=== PATIENT | female | born 1940 | race Caucasian/White ===

== ENCOUNTER 2022-12-10 06:51 | Day surgery (SDC) | payer MEDICARE ==
--- NOTE | 2022-12-08 14:49 | P.HPOR ---
History of Present Illness H&P Date: 12/08/22 Subjective: This is a 82 year old female that presents today for initial evaluation regarding a several year history of progressively worsening right hand numbness and tingling involving the thumb, index, middle and ring finger. She states her symptoms first started around the time of Covid, but never sought any treatment. She has been wearing wrist braces at nighttime with no relief. She states she had a left carpal tunnel release done by Dr. Armstrong approximately 10 years ago and responded very well to surgery. Physical Examination: RUE: AIN/PIN/Radial/Ulnar/Median motor intact. Radial/Ulnar/Median SILT. 2+/4 Radial/Ulnar pulses palpated. 5/5 APB, 5/5 FDI. Negative Finkelsteins, negative CMC grind, positive Durkan's compression. Imaging: X-Rays of the right hand 3 view taken in the office today demonstrate severe stage III SLAC wrist arthritis. Severe thumb CMC arthritis. Impression: 1.) Right carpal tunnel syndrome 2.) Right SLAC wrist arthritis Plan: Diagnosis and treatment options were discussed with the patient. She has failed conservative treatment for her right carpal tunnel syndrome. We discussed steroid injection versus carpal tunnel release. She wishes to pursue a right endoscopic first open carpal tunnel release. We discussed that since her symptoms are constant she may not get complete relief and the goal of the surgery would be to prevent any future progression of her symptoms and any improvement will be considered a success. PCP clearance is requested. The patient was agreeable with this plan. CC: Larry Patel M.D. -Richard Cruz DO Orthopedic Hand/Upper Extremity Surgeon Past Medical History Past Medical History: Atrial Flutter, Diabetes Mellitus, GERD/Reflux, Hyperlipidemia, Hypertension, Osteoarthritis (OA), Skin Disorder Additional Past Medical History / Comment(s): spinal stenosis, psoriasis, rosacea, lower leg edema zak. left leg, flat footed, & left foot pain History of Any Multi-Drug Resistant Organisms: None Reported Past Surgical History: Hysterectomy, Joint Replacement, Orthopedic Surgery, Tonsillectomy Additional Past Surgical History / Comment(s): left knee replacement, left foot heel spur, cataracts removed, right shoulder replaced Past Anesthesia/Blood Transfusion Reactions: Motion Sickness Smoking Status: Never smoker - Past Family History Mother Family Medical History: Cancer Medications and Allergies Home Medications Medication Instructions Recorded Confirmed Type Metoprolol Succinate (ER) [Toprol 50 mg PO DAILY 08/09/14 12/08/22 History Xl] Simvastatin [Zocor] 20 mg PO HS 08/09/14 12/08/22 History Cholecalciferol [Vitamin D3 (25 25 mcg PO DAILY 12/08/22 12/08/22 History Mcg = 1000 Iu)] Furosemide [Lasix] 40 mg PO DAILY 12/08/22 12/08/22 History Potassium Chloride [K-Tab ER] 10 meq PO DAILY 12/08/22 12/08/22 History Valsartan/Hydrochlorothiazide 1 each PO DAILY 12/08/22 12/08/22 History [Valsartan-Hctz 320-12.5 mg Tab] Warfarin [Coumadin] 5 mg PO HS 12/08/22 12/08/22 History metFORMIN HCL [Glucophage] 1,000 mg PO BID 12/08/22 12/08/22 History Allergies Allergy/AdvReac Type Severity Reaction Status Date / Time No Known Allergies Allergy Verified 12/08/22 10:24 Physical Examination Osteopathic Statement: *. No significant issues noted on an osteopathic structural exam other than those noted in the History and Physical/Consult.
[~2022-12-10 06:51] MED LIST: HYDROmorphone 0.5 MG/0.5 ML SYRINGE IVP PRN; LACTATED RINGERS 1,000 ML IV SCH; LIDOCAINE 1% (10MG/ML) FOR IV START INTRADERMA PRN; ONDANSETRON 4 MG/2 ML VIAL IVP ONE; Pre Op ABX Message 1 EACH MISC MISCELLANE ONE
[2022-12-10 07:55] VITALS: TEMP 97.5
[2022-12-10 08:14] LABS: Glucose,Whole Blood 158 mg/dL (70-110)
[2022-12-10 08:21] LABS: INR 4.4 (<1.2); Prothrombin Time 42.8 sec (9.0-12.0)
[2022-12-10] MEDS ORDERED: PROPOFOL 10 MG/ML 20 ML VIAL IV ONE (08:21)
[2022-12-10] MEDS ORDERED: fentaNYL (PF) 50 MCG/ML 2 ML AMP ONE (08:21)
[2022-12-10] MEDS ORDERED: MIDAZOLAM 2 MG/2 ML VIAL ONE (08:21)
[2022-12-10] MEDS ORDERED: LIDOCAINE 2% INJ 20 MG/ML SQ ONE (08:28)
[2022-12-10] MEDS ORDERED: BUPIVACAINE (PF) 0.5% 30 ML VIAL SQ ONE (08:28)
--- NOTE | 2022-12-10 08:41 | P.OP ---
Date of Procedure: 12/10/22 Preoperative Diagnosis: Right carpal tunnel syndrome Postoperative Diagnosis: Right carpal tunnel syndrome Procedure(s) Performed: Right endoscopic carpal tunnel release Anesthesia: MAC Surgeon: Richard Cruz Finished Yarn Examiner #1: Mike Sun Estimated Blood Loss (ml): 0 Pathology: none sent Condition: stable Disposition: PACU Description of Procedure: This is a 82 year old female who presents today for a right endoscopic carpal tunnel release after having failed conservative treatment in the past. Risks and benefits of surgery were discussed with the patient including bleeding, damage to surrounding tissue, infection, need to convert to open procedure, need for further surgery as well as risks of anesthesia including pulmonary embolism and even and the patient wished to proceed with surgical intervention. The patients was seen in the pre-operative area by myself. Consent and H&P were completed and updated. The correct extremity was marked in the pre-operative area by myself and all other questions were answered. Operative Narrative: The patient was brought to the operating room by the department of anesthesia. They remained on the portable stretcher and a rolling hand table was brought to the side of the operative extremity. Pre-operative time out was performed indicating the correct patient, procedure and laterality. All in the room agreed. The patient was then drifted off to sleep by the department of an esthesia. MAC anesthesia was utilized and a 50:50 mixture of 1% Lidocaine and 0.5% bupivacaine was injected into the subcutaneous tissues of the palmar skin, 8ccs total. A nonsterile tourniquet was then applied to the operative extremity and the right upper extremity was then prepped and draped in normal sterile fashion. The operative extremity was the exsanguinated with an esmarch bandage and the tourniquet was inflated to 250mmHg. 15 blade scalpel was utilized to make a transverse incision on the palmar skin just ulnar to the palmaris longus tendon at the level of the distal wrist creas e. Ragnell retractor was then placed radially and blunt dissection was performed to reveal the distal forearm fascia. This was lifted with fine Marin pick ups and Littler tenotomy scissors were then used to open the forearm fascia transversely and a double skin hook was then placed. Hamate finder was placed into the carpal tunnel and then sequential sized dilators were inserted followed by the synovial elevator to separate the flexor tenosynovium from the undersurface of the transverse carpal ligament and a washboard texture was felt. The MicroAire endoscopic carpal tunnel release system gun was the then inserted into the carpal tunnel hugging the deep portion of the transverse carpal ligament in line with the base of the ring finger. Transverse fibers of the ligament were directly visualized. Pressure was applied on the palm to reveal the distal extent of the transverse carpal ligament. The blade was then deployed and the distal half of the transverse carpal ligament was released. The scope was then brought distal again and remaining transverse fibers were incised with the blade. The proximal half of the transverse carpal ligament was then divided and again the scope was advanced distal and remaining transverse fibers were incised with the blade. The radial and ulnar leaflets were directly visualized and mobile consistent with complete release. Tenotomy scissors were then ut ilized to release the remaining distal forearm fascia under direct visualization taking care to preserve the palmar cutaneous branch of the median nerve. Skin closure was performed with interrupted 4-0 Monocryl suture followed by Mastisol and steri strips. Sterile dressing was applied consisting of adaptic, 4x4s, Webril, and an guera bandage. Tourniquet was let down and the hand immediately was well perfused. The patient was then woken by the department of anesthesia and transferred to PACU in stable condition. Mike ESCALANTE was present for the case in its entirety and assisted in major portions of the case and protection of vital neurovascular structures. Richard Cruz D.O. Orthopedic Hand/Upper Extremity Surgeon
[2022-12-10] MEDS ORDERED: LACTATED RINGERS 1,000 ML IV ONE (08:43)
[2022-12-10 08:46] LABS: Glucose,Whole Blood 145 mg/dL (70-110)
[2022-12-10 09:04] VITALS: BP 126/75; PULSE 64; RESP 17
== END 2022-12-10 09:13 | disposition home or self-care (01) ==
LOC: OR 06:51
PROVIDERS: ATTEND Orthopaedic Surgery Hand Surgery
DX: G56.01 Carpal tunnel syndrome, right upper limb (principal); I10 Essential (primary) hypertension; E78.5 Hyperlipidemia, unspecified; K21.9 Gastro-esophageal reflux disease without esophagitis; E11.9 Type 2 diabetes mellitus without complications; I48.92 Unspecified atrial flutter; Z90.710 Acquired absence of both cervix and uterus; Z90.89 Acquired absence of other organs; Z98.890 Other specified postprocedural states; Z79.84 Long term (current) use of oral hypoglycemic drugs; Z79.899 Other long term (current) drug therapy
CPT/HCPCS: 85610; 29848; J2001; J2250; J3010; J2704; J0665

== ENCOUNTER 2024-09-26 12:17 | Emergency (ER) | payer MEDICARE ==
[2024-09-26 12:47] LABS: Basophils # (A) 0.05 10*3/uL (0.00-0.10); Basophils % (A) 0.5 %; Eosinophils # (A) 0.16 10*3/uL (0.04-0.35); Eosinophils % (A) 1.5 %; HCT 40.7 % (37.2-46.3); HGB 13.1 g/dL (12.0-15.0); Lymphocytes # (A) 1.93 10*3/uL (0.90-5.00); Lymphocytes % (A) 18.3 %; MCH 27.4 pg (27.0-32.0); MCHC 32.2 g/dL (32.0-37.0); MCV 85.1 fL (80.0-97.0); Monocytes # (A) 0.95 10*3/uL (0.20-1.00); Monocytes % (A) 9.0 %; Neutrophils # (A) 7.19 10*3/uL (1.80-7.70); Neutrophils % (A) 68.1 %; Platelet Count 230 10*3/uL (140-440); RBC 4.78 10*6/uL (4.10-5.20); RDW 15.7 % (11.5-14.5); WBC 10.55 10*3/uL (4.50-10.00)
[2024-09-26 13:04] LABS: ALT 17 U/L (4-34); AST 27 U/L (14-36); African American GFR (CKD) >90 (>60 ml/min/1.73 sqM); Albumin 4.4 g/dL (3.5-5.0); Alkaline Phosphatase 49 U/L (38-126); Anion Gap 12 mmol/L; Blood Urea Nitrogen 19 mg/dL (7-17); Calcium 10.7 mg/dL (8.4-10.2); Carbon Dioxide 27 mmol/L (22-30); Chloride 95 mmol/L (98-107); Glucose 142 mg/dL (74-99); Magnesium 1.7 mg/dL (1.6-2.3); Non-African American GFR(CKD) >90 (>60 ml/min/1.73 sqM); Potassium 4.2 mmol/L (3.5-5.1); Sodium 134 mmol/L (137-145); Total Protein 6.6 g/dL (6.3-8.2)
--- NOTE | 2024-09-26 13:08 | XR ---
EXAMINATION TYPE: XR chest 2V DATE OF EXAM: 09/26/2024 1:03 PM COMPARISON: None. CLINICAL INDICATION: Female, 84 years old with history of Pain, TECHNIQUE: XR chest 2V view(s) obtained. FINDINGS: The heart size is normal. The pulmonary vasculature is normal. The lungs are clear. IMPRESSION: 1. No acute pulmonary process. [facility], , 09/26/2024 1:06 PM
[2024-09-26 13:14] LABS: INR 4.5 (<1.2); Partial Thromboplastin Time 31.0 sec (22.0-30.0); Prothrombin Time 44.5 sec (10.0-12.5)
--- NOTE | 2024-09-26 14:32 | ED ---
General Adult HPI - General Source: patient, RN notes reviewed Mode of arrival: ambulatory Limitations: no limitations <Citlali Quiñones - Last Filed: 09/26/24 14:31> <Billie Bruce - Last Filed: 09/30/24 16:11> - General Chief complaint: Dizziness Stated complaint: Dizziness,SOB Time Seen by Provider: 09/26/24 12:30 - History of Present Illness Initial comments: Quick [id number] female presenting to the emergency department for complaints of of dizziness with activity and difficulty in breathing on exertion over the past few days. Patient denies dyspnea at rest or dizziness at rest. She states the dizziness feels like she is falling. Denies chest pain. (Citlali Quiñones) 84-year-old female presents to the emergency department for evaluation of shortness of breath and lightheadedness. Patient notes that this is worse with exertion. She states that this has been going on for the past 3 to 4 days. She notes that at rest she does not have symptoms or they are very minimal. She denies any recent fever, chills. Denies any chest pain. She does report that she has been dealing with recurrent urinary tract infections. She does note that she is having urinary symptoms. (Billie Bruce) - Related Data Home Medications Medication Instructions Recorded Confirmed Metoprolol Succinate (ER) [Toprol 50 mg PO DIRECTED 08/09/14 09/26/24 Xl] Cholecalciferol [Vitamin D3 (25 25 mcg PO DAILY 12/08/22 09/26/24 Mcg = 1000 Iu)] Furosemide [Lasix] 40 mg PO DIRECTED 12/08/22 09/26/24 Potassium Chloride [K-Tab ER] 10 meq PO DIRECTED 12/08/22 09/26/24 Valsartan/Hydrochlorothiazide 1 tab PO DIRECTED 12/08/22 09/26/24 [Valsartan-Hctz 320-12.5 mg Tab] metFORMIN HCL [Glucophage] 1,000 mg PO DIRECTED 12/08/22 09/26/24 Jardiance (Unknown Dose) 1 tab PO DIRECTED 09/26/24 09/26/24 Simvastatin [Zocor] 20 mg PO DIRECTED 09/26/24 09/26/24 Warfarin Sodium 4 mg PO DIRECTED 09/26/24 09/26/24 Warfarin Sodium 6 mg PO DIRECTED 09/26/24 09/26/24 Previous Rx's Medication Instructions Recorded cefuroxime axetiL [Ceftin] 500 mg PO BID #14 tab 09/26/24 Allergies Allergy/AdvReac Type Severity Reaction Status Date / Time No Known Allergies Allergy Verified 09/26/24 17:57 Review of Systems ROS Other: All systems not noted in ROS Statement are negative. <Citlali Quiñones - Last Filed: 09/26/24 14:31> ROS Other: All systems not noted in ROS Statement are negative. <Billie Bruce - Last Filed: 09/30/24 16:11> ROS Statement: Those systems with pertinent positive or pertinent negative responses have been documented in the HPI. Past Medical History Past Medical History: Atrial Flutter, Diabetes Mellitus, GERD/Reflux, Hyperlipidemia, Hypertension, Osteoarthritis (OA), Skin Disorder Additional Past Medical History / Comment(s): spinal stenosis, psoriasis, rosacea, lower leg edema zak. left leg, flat footed, & left foot pain History of Any Multi-Drug Resistant Organisms: None Reported Past Surgical History: Hysterectomy, Joint Replacement, Orthopedic Surgery, Tonsillectomy Additional Past Surgical History / Comment(s): left knee replacement, left foot heel spur, cataracts removed, right shoulder replaced Past Anesthesia/Blood Transfusion Reactions: Motion Sickness Past Psychological History: No Psychological Hx Reported Smoking Status: Never smoker Past Alcohol Use History: None Reported Past Drug Use History: None Reported - Past Family History Mother Family Medical History: Cancer <Citlali Quiñones - Last Filed: 09/26/24 14:31> General Exam Limitations: no limitations <Citlali Quiñones - Last Filed: 09/26/24 14:31> Limitations: no limitations General appearance: alert, in no apparent distress Head exam: Present: atraumatic, normocephalic, normal inspection Eye exam: Present: normal appearance, PERRL, EOMI. Absent: scleral icterus, conjunctival injection, periorbital swelling ENT exam: Present: normal exam, mucous membranes moist Neck exam: Present: normal inspection. Absent: tenderness, meningismus, lymphadenopathy Respiratory exam: Present: normal lung sounds bilaterally. Absent: respiratory distress, wheezes, rales, rhonchi, stridor Cardiovascular Exam: Present: regular rate, normal rhythm, normal heart sounds. Absent: systolic murmur, diastolic murmur, rubs, gallop, clicks Extremities exam: Present: full ROM, normal capillary refill, pedal edema (Trace bilateral pedal edema). Absent: tenderness, joint swelling, calf tenderness Neurological exam: Present: alert, oriented X3 Psychiatric exam: Present: normal affect, normal mood Skin exam: Present: warm, dry, intact, normal color. Absent: rash <Billie Bruce - Last Filed: 09/30/24 16:11> - General Exam Comments Initial Comments: Visual Physical Exam Vital signs reviewed General: Well-appearing, nontoxic, no acute distress. Head: Normocephalic, atraumatic Eyes: PERRLA, EOMI ENT: Airway patent Chest: Nonlabored breathing Skin: No visual rash, normal skin tone Neuro: Alert and oriented 3 Musculoskeletal: No gross abnormalities (Citlali Quiñones) Course Vital Signs 09/26/24 09/26/24 09/26/24 12:19 15:19 18:16 Temperature 97.5 F L 97.9 F Pulse Rate 68 61 66 Respiratory 20 20 18 Rate Blood Pressure 128/76 120/76 108/74 O2 Sat by Pulse 98 97 98 Oximetry Medical Decision Making - Lab Data Result diagrams: 09/26/24 12:36 09/26/24 12:36 <Citalli Quiñones - Last Filed: 09/26/24 14:31> - Lab Data Result diagrams: 09/26/24 12:36 09/26/24 12:36 <Billie Bruce - Last Filed: 09/30/24 16:11> - Medical Decision Making I completed the quick note portion of this chart signed Citlali Quiñones PA-C (Citlali Quiñones) Was pt. sent in by a medical professional or institution ([facility], VIOLENT CRIMES DETECTIVE, urgent care, hospital, or penitentiary...) When possible be specific @ -No Did you speak to anyone other than the patient for history (EMS, parent, family, police, friend...)? What history was obtained from this source @ -No Did you review nursing and triage notes (agree or disagree)? Why? @ -I reviewed and agree with nursing and triage notes Were old charts reviewed (outside hosp., previous admission, EMS record, old EKG, old radiological studies, urgent care reports/EKG's, penitentiary records)? Report findings @ -No old charts were reviewed Differential Diagnosis (chest pain, altered mental status, abdominal pain women, abdominal pain men, vaginal bleeding, weakness, fever, dyspnea, syncope, headache, dizziness, GI bleed, back pain, seizure, CVA, palpatations, mental health, musculoskeletal)? @ -Differential Dyspnea: Coronary syndrome, arrhythmia, tamponade, asthma, COPD, pulmonary embolism, pneumonia, pneumothorax, pulmonary effusion, anaphylaxis, diabetic ketoacidosis, flailed chest, pulmonary contusion, diaphragmatic rupture, anemia, neuromuscular, this is not meant to be an all-inclusive list. EKG interpreted by me (3pts min.). @ -EKGEKG at 1227 reveals a flutter with a rate of 65 QRS 123, QT/QTc 382/394 X-rays interpreted by me (1pt min.). @ -Chest x-ray reveals no acute process CT interpreted by me (1pt min.). @ -None done U/S interpreted by me (1pt. min.). @ -None done What testing was considered but not performed or refused? (CT, X-rays, U/S, labs)? Why? @ -None What meds were considered but not given or refused? Why? @ -None Did you discuss the management of the patient with other professionals (professionals i.e. , PA, VIOLENT CRIMES DETECTIVE, lab, RT, psych nurse, social media senior associate, glass cut off tender, teacher, boating safety officer, case therapist)? Give summary @ -I discussed the case with Dr. Zendejas, the patient's manager labor relations who recommends antibiotic treatment for urinary tract infection and follow-up in office within the next 2 to 3 days Was smoking cessation discussed for >3mins.? @ -No Was critical care preformed (if so, how long)? @ -No Were there social determinants of health that impacted care today? How? (Homelessness, low income, unemployed, alcoholism, drug addiction, transportation, low edu. Level, literacy, decrease access to med. care, intermediate, rehab)? @ -No Was there de-escalation of care discussed even if they declined (Discuss DNR or withdrawal of care, Hospice)? DNR status @ -No What co-morbidities impacted this encounter? (DM, HTN, Smoking, COPD, CAD, Cancer, CVA, ARF, Chemo, Hep., AIDS, mental health diagnosis, sleep apnea, morbid obesity)? @ -None Was patient admitted / discharged? Hospital course, mention meds given and route, prescriptions, significant lab abnormalities, going to OR and other pertinent info. @ -Discharge. Patient presented emergency department for shortness of breath and lightheadedness. Patient has minimal symptoms at rest. Laboratory studies were obtained WBC of 10.5, hemoglobin 13.1; patient does have elevated INR at 4.5. I discussed this with Dr. Zendejas who recommended holding her nighttime dose of Eliquis today. CMP shows sodium 134 potassium 4.2, BUN 19, creatinine 0.43 negative troponin. UA shows 4+ glucose, 2+ ketones, large blood, large leukocyte esterase. I did discuss the case with the patient's primary care provider Dr. Zendejas who recommends antibiotic treatment for urinary tract infection, holding the dose of Eliquis for this evening and follow-up in the office in the next 2 to 3 days. I discussed this with the patient and she is understanding agreeable with plan. Patient stable at time of discharge. Case discussed with Dr. Steward Undiagnosed new problem with uncertain prognosis? @ -No Drug Therapy requiring intensive monitoring for toxicity (Heparin, Nitro, Insulin, Cardizem)? @ -No Were any procedures done? @ -No Diagnosis/symptom? @ -shortness of breath, UTI Acute, or Chronic, or Acute on Chronic? @ -acute Uncomplicated (without systemic symptoms) or Complicated (systemic symptoms)? @ -uncomplicated Side effects of treatment? @ -No Exacerbation, Progression, or Severe Exacerbation? @ -No Poses a threat to life or bodily function? How? (Chest pain, USA, MD, pneumonia, PE, COPD, DKA, ARF, appy, cholecystitis, CVA, Diverticulitis, Homicidal, Suicidal, threat to staff... and all critical care pts) @ -No (Billie Bruce) - Lab Data Lab Results 09/26/24 09/26/24 09/26/24 Range/Units 12:36 12:36 12:36 WBC 10.55 H (4.50-10.00) 10*3/uL RBC 4.78 (4.10-5.20) 10*6/uL Hgb 13.1 (12.0-15.0) g/dL Hct 40.7 (37.2-46.3) % MCV 85.1 (80.0-97.0) fL MCH 27.4 (27.0-32.0) pg MCHC 32.2 (32.0-37.0) g/dL Plt Count 230 (140-440) 10*3/uL MPV 11.4 (9.5-12.2) fL Immature Gran % (Auto) 2.6 % Neutrophils % 68.1 % Lymphocytes % 18.3 % Monocytes % 9.0 % Eosinophils % 1.5 % Basophils % 0.5 % Immature Gran # 0.27 H (0.00-0.04) 10*3/uL Neutrophils # 7.19 (1.80-7.70) 10*3/uL Lymphocytes # 1.93 (0.90-5.00) 10*3/uL Monocytes # 0.95 (0.20-1.00) 10*3/uL Eosinophils # 0.16 (0.04-0.35) 10*3/uL Basophils # 0.05 (0.00-0.10) 10*3/uL PT 44.5 H (10.0-12.5) sec INR 4.5 H (<1.2) APTT 31.0 H (22.0-30.0) sec Sodium 134 L (137-145) mmol/L Potassium 4.2 (3.5-5.1) mmol/L Chloride 95 L (98-107) mmol/L Carbon Dioxide 27 (22-30) mmol/L Anion Gap 12 mmol/L BUN 19 H (7-17) mg/dL Creatinine 0.43 L (0.52-1.04) mg/dL Est GFR (CKD-EPI)AfAm >90 (>60 ml/min/1.73 sqM) Est GFR (CKD-EPI)NonAf >90 (>60 ml/min/1.73 sqM) Glucose 142 H (74-99) mg/dL Calcium 10.7 H (8.4-10.2) mg/dL Magnesium 1.7 (1.6-2.3) mg/dL Total Bilirubin 0.7 (0.2-1.3) mg/dL AST 27 (14-36) U/L ALT 17 (4-34) U/L Alkaline Phosphatase 49 (38-126) U/L Troponin I (0.000-0.034) ng/mL NT-Pro-B Natriuret Pep pg/mL Total Protein 6.6 (6.3-8.2) g/dL Albumin 4.4 (3.5-5.0) g/dL Urine Color Urine Appearance (Clear) Urine pH (5.0-8.0) Ur Specific [place] (1.001-1.035) Urine Protein (Negative) Urine Glucose (UA) (Negative) Urine Ketones (Negative) Urine Blood (Negative) Urine Nitrite (Negative) Urine Bilirubin (Negative) Urine Urobilinogen (<2.0) mg/dL Ur Leukocyte Esterase (Negative) Urine RBC (0-5) /hpf Urine WBC (0-5) /hpf Ur Squamous Epith Cells (0-4) /hpf Urine Mucus (None) /hpf 09/26/24 09/26/24 09/26/24 Range/Units 12:36 12:36 16:41 WBC (4.50-10.00) 10*3/uL RBC (4.10-5.20) 10*6/uL Hgb (12.0-15.0) g/dL Hct (37.2-46.3) % MCV (80.0-97.0) fL MCH (27.0-32.0) pg MCHC (32.0-37.0) g/dL Plt Count (140-440) 10*3/uL MPV (9.5-12.2) fL Immature Gran % (Auto) % Neutrophils % % Lymphocytes % % Monocytes % % Eosinophils % % Basophils % % Immature Gran # (0.00-0.04) 10*3/uL Neutrophils # (1.80-7.70) 10*3/uL Lymphocytes # (0.90-5.00) 10*3/uL Monocytes # (0.20-1.00) 10*3/uL Eosinophils # (0.04-0.35) 10*3/uL Basophils # (0.00-0.10) 10*3/uL PT (10.0-12.5) sec INR (<1.2) APTT (22.0-30.0) sec Sodium (137-145) mmol/L Potassium (3.5-5.1) mmol/L Chloride (98-107) mmol/L Carbon Dioxide (22-30) mmol/L Anion Gap mmol/L BUN (7-17) mg/dL Creatinine (0.52-1.04) mg/dL Est GFR (CKD-EPI)AfAm (>60 ml/min/1.73 sqM) Est GFR (CKD-EPI)NonAf (>60 ml/min/1.73 sqM) Glucose (74-99) mg/dL Calcium (8.4-10.2) mg/dL Magnesium (1.6-2.3) mg/dL Total Bilirubin (0.2-1.3) mg/dL AST (14-36) U/L ALT (4-34) U/L Alkaline Phosphatase (38-126) U/L Troponin I <0.012 (0.000-0.034) ng/mL NT-Pro-B Natriuret Pep 69 pg/mL Total Protein (6.3-8.2) g/dL Albumin (3.5-5.0) g/dL Urine Color Yellow Urine Appearance Cloudy H (Clear) Urine pH 6.5 (5.0-8.0) Ur Specific [place] 1.029 (1.001-1.035) Urine Protein Trace H (Negative) Urine Glucose (UA) 4+ H (Negative) Urine Ketones 2+ H (Negative) Urine Blood Large H (Negative) Urine Nitrite Negative (Negative) Urine Bilirubin Negative (Negative) Urine Urobilinogen 2.0 (<2.0) mg/dL Ur Leukocyte Esterase Large H (Negative) Urine RBC >182 H (0-5) /hpf Urine WBC 68 H (0-5) /hpf Ur Squamous Epith Cells 6 H (0-4) /hpf Urine Mucus Rare H (None) /hpf Disposition <Citlali Quiñones - Last Filed: 09/26/24 14:31> Is patient prescribed a controlled substance at d/c from ED?: No <Billie Bruce - Last Filed: 09/30/24 16:11> Clinical Impression: UTI (urinary tract infection), Dizziness, Shortness of breath Disposition: HOME SELF-CARE Condition: Stable Instructions (If sedation given, give patient instructions): Dizziness (ED) Additional Instructions: Please follow up with Dr. Zendejas. Return to the emergency department for new or worsening symptoms. Prescriptions: cefuroxime axetiL [Ceftin] 500 mg PO BID #14 tab Referrals: Jose Zendejas MD [Primary Care Provider] - 1-2 days
[2024-09-26 17:15] LABS: Bilirubin,Urine Negative (Negative); Blood,Urine Large (Negative); Color,Urine Yellow; Glucose,Urine (UA) 4+ (Negative); Leukocyte Esterase,Urine Large (Negative); Mucus,Urine Rare /hpf; Nitrite,Urine Negative (Negative); PH, Urine 6.5 (5.0-8.0); Protein,Urine Trace (Negative); RBC,Urine >182 /hpf (0-5); Specific Gravity,Urine 1.029 (1.001-1.035); Squamous Epithelial Cell,Urine 6 /hpf (0-4); Urobilinogen,Urine 2.0 mg/dL (<2.0); WBC,Urine 68 /hpf (0-5)
[2024-09-26 17:17] LABS: Ketones,Urine 2+ (Negative)
[2024-09-26 18:17] VITALS: BP 108/74; PULSE 66; RESP 18; TEMP 97.9
== END 2024-09-26 18:19 | disposition home or self-care (01) ==
LOC: EC 12:17
DX: N39.0 Urinary tract infection, site not specified (principal); R06.02 Shortness of breath; R42 Dizziness and giddiness
CPT/HCPCS: 36415; 71046; 80053; 81001; 83735; 83880; 84484; 85025; 85610; 85730; 87086; 99285